=== PATIENT | female | born 1985 | race Native Hawaiian/Other Pacific Islander ===

== ENCOUNTER 2019-09-16 15:59 | Emergency (ER) | payer OTHER ==
[~2019-09-16] VITALS: Ht 162.6 cm; Wt 99.0 kg
[2019-09-16 17:12] LABS: PLATELET COUNT 332 K/uL (152-353)
[2019-09-16 17:21] LABS: POTASSIUM 3.9 mmol/L (3.6-5.2); SODIUM 140 mmol/L (136-145)
[2019-09-16 18:45] VITALS: BP 142/86; TEMP 98
== END 2019-09-16 18:45 | disposition home or self-care (01) ==
LOC: ED 15:59
PROVIDERS: Family Medicine
DX: R07.89 Other chest pain (principal)
CPT/HCPCS: 80053; 81000; 81025; 82550; 84484; 85027; 85379; 93005; 99283

== ENCOUNTER 2021-09-24 22:40 | Emergency (ER) | payer OTHER ==
[~2021-09-24] VITALS: Ht 162.6 cm; Wt 89.4 kg
[2021-09-25 00:51] LABS: PLATELET COUNT 186 K/uL (152-353)
[2021-09-25 00:55] LABS: POTASSIUM 3.5 mmol/L (3.6-5.2)
[2021-09-25 03:05] VITALS: BP 115/56; TEMP 98.9
== END 2021-09-25 03:05 | disposition home or self-care (01) ==
LOC: ED 22:40
PROVIDERS: Family Medicine
DX: J40 Bronchitis, not specified as acute or chronic (principal); J32.8 Other chronic sinusitis; E86.0 Dehydration; U07.1 COVID-19
CPT/HCPCS: 36415; 80053; 81000; 83690; 85027; 87635; 87651; 96360; 96375; 99284; J1885; J2405; U0003